=== PATIENT | female | born 1985 | race Caucasian/White ===

== ENCOUNTER 2016-04-11 17:31 | Emergency (ER) ==
[2016-04-11 18:16] LABS: MANUAL DIFF NEEDED? NO
[2016-04-11 18:16] LABS: URINE CULTURE NEEDED? NO; URINE MICRO REVIEW NEEDED? NO; URINE SOURCE CLEAN CATCH
[2016-04-11 18:19] LABS: BASO% 0.3 % (0.0-0.8); EOS# 0.08 X1000 (0.0-0.7); EOS% 1.4 % (0.0-10.0); HEMATOCRIT 37.3 % (37.0-47.0); HEMOGLOBIN 12.8 g/dL (12.0-16.0); LYMPH# 1.86 X1000 (1.2-3.4); LYMPH% 31.8 % (20.5-51.1); MCH 31.2 PG (27-31); MCHC 34.3 g/dL (33-37); MONO% 6.8 % (1.7-9.3); NEUT% 59.7 % (42.2-75.2); PLT 193 X1000 (130-400)
[2016-04-11 18:22] LABS: BILIRUBIN URINE NEGATIVE (NEGATIVE); BLOOD URINE NEGATIVE (NEGATIVE); COLOR YELLOW; GLUCOSE URINE NEGATIVE (NEGATIVE); LEUKOCYTES URINE NEGATIVE (NEGATIVE); NITRITE URINE NEGATIVE (NEGATIVE); PH URINE 5.5; PROTEIN URINE NEGATIVE (NEGATIVE); SP GRAVITY URINE 1.021; TURBIDITY URINE CLEAR (CLEAR); UROBILINOGEN URINE NORMAL (NORMAL)
[2016-04-11 18:24] LABS: UR EPITHELIAL CELLS <10 /HPF (<10); URINE BACTERIA NEGATIVE /HPF; URINE RBC <10 /HPF (<10); URINE WBC <10 /HPF (<10)
[2016-04-11 18:49] LABS: AGAP 13; ALBUMIN 4.4 g/dL (3.5-5.0); ALKALINE PHOSPHATASE 45 U/L (32-104); AMYLASE 59 U/L (20-200); BUN 10 mg/dL (8-22); CALCIUM 9.4 mg/dL (8.8-10.2); CHLORIDE 100 mmol/L (98-107); COSMO 274; GOT 22 U/L (10-30); GPT 25 U/L (10-36); LIPASE 27 U/L (13-60); POTASSIUM 3.3 mmol/L (3.5-5.1); SODIUM 138 mmol/L (136-145); TCO2 25 mmol/L (25-35); TOTAL BILIRUBIN 1.06 mg/dL (0.20-1.00); TOTAL PROTEIN 7.4 g/dL (6.3-8.3)
--- NOTE | 2016-04-11 20:05 | PROVIDER DOCUMENTATION ---
HPI-Abdominal Pain/GI Problem - General Chief Complaint: Abdominal Pain Stated Complaint: FEVER/NAUSEA/HEADACHE Time Seen by Provider: 04/11/16 18:15 Source: patient Allergies/Adverse Reactions: Patient Allergies Allergy/AdvReac Type Severity Reaction Status Date / Time No Known Allergies Allergy Verified 04/11/16 18:23 Home Medications: Home Medication List Medication Instructions Recorded Confirmed Last Taken Type Na Phos,M-B/Na Phos,Di-Ba [Fleet 133 ml ME HS PRN PRN #3 enema 04/11/16 Unknown Rx Enema] - History of Present Illness-ABD Nature of Presenting Problems: 30 yof c/o abd pain for 9 days. Abdominal Pain Onset Location: reports: generalized abdomen. denies: RUQ, LUQ, RLQ, LLQ, epigastric, periumbilical, suprapubic, flank, unknown, other Pain Radiation: reports: no radiation. denies: RUQ, LUQ, RLQ, LLQ, epigastric, periumbilical, flank, groin, scapula, shoulder, chest, back, other Quality of Pain: reports: cramping. denies: none, aching, burning, dull, fullness, indigestion, pressure, sharp, stabbing, tearing, throbbing, tightness , other Severity in ED: reports: moderate Onset/Duration: denies: unsure, abrupt, gradual, just prior to arrival, 1/2 hour ago, 1 hour ago, 1-3 hours ago, 4-6 hours ago, 24 hours ago, 2 days ago, 4 days ago, 5 days ago, 6 days ago, 1 week ago, last week, this morning, this afternoon, this evening, last night, other Timing: reports: still present, getting worse. denies: improving, gone now, resolved prior to arrival, intermittent, constant, changing over time, other Activities at Onset: reports: rest. denies: none, light activity, moderate activity, vigorous activity, recent emotional stress, recent physical stress, recent trauma history, possible bad food, cold exposure, eating, out of country travel, sleep, sexual activity, other Exposure to sick contacts?: No Modifying Factors: improves with: nothing. worse with: analgesics, antacids, breathing, cold/heat therapy, coughing, defecating, eating, exercise, immobilization, lying down, massage, movement, other medication, palpation, rest , urinating, vomiting, other Associated Symptoms: reports: nausea. denies: denies symptoms, anxiety, arm pain, back/neck pain, chest pain, constipation, cough, diaphoresis, diarrhea, dizziness, EENT symptoms, fatigue, fever/chills, genitourinary problems, headaches, heartburn, joint pain, loss of appetite, malaise, muscle aches, sinus congestion/drainage, rash, seizure, shortness of breath, sensory/motor loss, pain with inspiration, swelling/mass in abdomen, syncope, vomiting, weakness, trouble walking, other Last BM: this morning Dark Stools Present?: reports: none noticed. denies: maroon, black, tarry, bright red blood, other Rectal Bleeding: reports: none. denies: bleeding without stool, bright red blood on paper, blood mixed with stool, blood streaks on stool, bloody diarrhea , other Rectal Pain: reports: none. denies: known anal fissure(s), known hemorrhoids, fistula, abscess, r/t intercourse, r/t foreign body, other Emesis Description: reports: none. denies: red blood, coffee grounds, blood- streaked, clear, other Bruising or Bleeding Gums?: No Similar Symptoms Previously?: No Recently seen or treated by another doctor?: No Review of Systems - Adult - REVIEW OF SYSTEMS - ADULT Constitutional: reports: see HPI. denies: no symptoms reported, chills, fever, fatique, night sweats, weight gain, weight loss, other Eyes: reports: no symptoms reported. denies: see HPI, discharge, dry eyes, decreased vision, blurred vision, double vision, eye pain, redness, other Ears, Nose, Mouth & Throat: reports: no symptoms reported. denies: see HPI, ear discharge, ear pain, hearing loss, tinnitus, epistaxis, sinus problem, nose pain, loose teeth, mouth/dental pain, mouth swelling, hoarseness, throat pain, throat swelling, other Cardiovascular: reports: no symptoms reported. denies: see HPI, chest pain, edema, heart murmur, irregular heart rate, orthopnea, palpitations, poor circulation, PND, syncope, other Respiratory: reports: no symptoms reported. denies: see HPI, chronic cough, cough, dyspnea on exertion, excessive sputum production, hemoptysis, pleurisy, shortness of breath, wheezing, other Gastrointestinal: reports: see HPI, abdominal pain, constipation. denies: no symptoms reported, hematemesis, diarrhea, difficulty swallowing, frequent heartburn, nausea, poor appetite, rectal bleeding, vomiting, other Genitourinary: reports: no symptoms reported. denies: see HPI, dysuria, discharge, frequency, flank pain, frequent UTI's, hematuria, hesitency, incontinence, urinary retention, urgency, other Musculoskeletal: reports: no symptoms reported. denies: see HPI, bone pain, back pain, frequent leg cramps, joint pain, joint swelling, muscle aches, muscle weakness, neck pain, other Integumentary: reports: no symptoms reported. denies: see HPI, hives, hair loss , itching, mole changes, nail changes, rash, skin sores/ulcer, skin thickening, other Neurological: reports: no symptoms reported. denies: see HPI, ataxia, dizziness /vertigo, headache/migraines, loss of balance, numbness, paresthesia, seizure, slurred speech, syncope, tremors, other Psychiatric: reports: no symptoms reported. denies: see HPI, anxiety, anti- depressant use, alcohol/drug dependence, depression, emotional problems, insomnia, panic attacks, suicidal thoughts, other Endocrine: reports: no symptoms reported. denies: see HPI, change in skin pigment, excessive sweating, goiter, cold intolerance, heat intolerance, increased hunger, increased thirst, polyuria, other All Other Systems: Reviewed and Negative Past History - Adult - PAST MEDICAL HISTORY-ADULT Review of Records: reports: Old Records Reviewed, Nursing Assessment Review, Medications Reviewed, Social history reviewed & non-contributory. Major Childhood Illnesses: reports: denies history Respiratory: reports: bronchitis (Chronic) - PRIOR SURGERIES/PROCEDURES Surgical/Procedure History: reports: reviewed, not pertinent - PRIOR HOSPITALIZATIONS Prior Hospitalizations: reports: none - IMMUNIZATION STATUS Childhood Immunizations: UTD Flu Vaccine: See Nurse Assessment - FAMILY HISTORY Family History: reviewed, not pertinent Physical Exam-General - PHYSICAL EXAM-ADULT Initial Vital Signs Reviewed: Yes - CONSTITUTIONAL General Appearance: appears well, alert, no apparent distress. negative: mild distress, moderate distress, severe distress, cachetic, obese, thin, anxious, lethargic, slow to respond, obtunded, combative, other - EYES Eyes: PERRL/EOMI, pink conjunctivae. negative: fundi clear, no AV nicking, anisocoria, conjuctival exudate, EOM palsy, meningismus, pale conjunctivae, photophobia, sclera injected, scleral icterus, subconjunctival hemorrhage, sunken eyes, other - HEAD, EARS, NOSE, MOUTH & THROAT HENMT: normocephalic/atraumatic, moist mucous membranes, normal ENT inspection, TMs normal, pharynx normal. negative: angioedema, dental decay, hearing deficit , pharyngeal erythema, tonsillar exudate, TM abnormal, TM obscurred by cerumen, frontal tenderness, maxillary tenderness, other - NECK Neck: non-tender, full range of motion, supple, normal inspection. negative: Brudzinski's sign, carotid bruit, C-spine tenderness, limited range of motion, lymphadenopathy, meningismus, trachial deviation, tender lateral, tender midline , thyromegaly, other - RESPIRATORY Respiratory: chest non-tender, lungs clear, normal breath sounds, no pleuratic chest pain, no respiratory distress, no accessory muscle use. negative: respiratory distress, decreased breath sounds, accessory muscle use, crackles, rales, rhonchi, stridor, wheezing, dull on percussion, prolonged expiration, pain on inspiration, plerual rub, retractions, splinting, decreased rate, increased rate, crepitus, other - CARDIOVASCULAR Cardiovascular: normal peripheral pulses, regular rate, rhythm, no edema, no gallop, no JVD, no murmur. negative: JVD, bradycardia, tachycardia, diastolic murmur, systolic murmur, gallop/S3, gallop/S4, extra beats, friction rub, irregularly irregular, PMI displaced laterally, other - CHEST (BREASTS) Chest/Breast: deferred. negative: normal breast inspection, no masses/lumps, no tenderness, nipple discharge, tenderness, mass/lump noted, other - GASTROINTESTINAL (ABDOMEN) Abdominal Exam: normal bowel sounds, soft, no organomegaly, no pulsatile mass, tenderness (Generalized) - GENITOURINARY Female Genitalia/Pelvic Exam: deferred. negative: external exam normal, speculum exam normal, bimanual exam normal, no cerv. motion tender, no masses, active bleeding, blood, cervicitis, discharge, herpes-like ulcerations, lesions , mass, tender w/ cervical motion, tender adnexa, tender uterus, ulcers, other Rectal Exam: deferred. negative: normal exam, normal rectal tone, black stool, blood streaked stool, decreased tone, hemorrhoids, mass, prostate enlarged/ nodule, tenderness, other Hemoccult Exam: deferred - LYMPHATIC Lymphatic: no adenopathy. negative: axilla node tender, cervical node tenderness, inguinal node tender, enlargement, striations, streaking, other - MUSCULOSKELETAL Back Exam: normal inspection, no CVA tenderness, no vertebral tenderness. negative: CVA tenderness, decreased range of motion, ecchymosis, kyphosis, lordosis, muscle spasm, scoliosis, swelling, vertebral tenderness, other Extremity: normal range of motion, non-tender, normal gait, normal inspection, no pedal edema, no calf tenderness, normal capillary refill. negative: pelvis stable, abnormal NV exam, calf tenderness, deformity, erythema, inflammation, joint effusion, pulse deficit, pedal edema, slow capillary refill, swelling, tenderness, other - SKIN Integumentary: normal color, normal turgor, warm/dry. 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 negative: abnormal cerebellar tests, abnormal fiberglass luggage molder II-XII, abnormal gait, aphasia, EOM palsy, facial droop, focal weakness, motor weakness, sensory deficit, negative romberg's sign, positive romberg's sign, other - PSYCHIATRIC Psych/Mental Status: normal mood/affect, normal thought content, normal thought process, oriented x 3. negative: disoriented x 3, anxious, disheveled, depressed affect, paranoid, tearful, other Progress - PLAN OF CARE/RESULTS Progress/Plan/Lab Results: Laboratory Tests 04/11/16 04/11/16 04/11/16 17:45 17:51 17:51 WBC 5.84 RBC 4.10 L Hgb 12.8 Hct 37.3 MCV 91.0 MCH 31.2 H MCHC 34.3 RDW Std Deviation 12.1 Plt Count 193 MPV 11.0 H Immature Gran % (Auto) 0.0 Neut % (Auto) 59.7 Lymph % (Auto) 31.8 Williamson % (Auto) 6.8 Eos % (Auto) 1.4 Baso % (Auto) 0.3 Immature Gran # (Auto) 0.00 Neut # (Auto) 3.48 Lymph # (Auto) 1.86 Williamson # (Auto) 0.40 Eos # (Auto) 0.08 Baso # (Auto) 0.02 Sodium 138 Potassium 3.3 L Chloride 100 Carbon Dioxide 25 Anion Gap 13 BUN 10 Creatinine 0.6 Estimated GFR/1.73 m2 > 60 BUN/Creatinine Ratio 17 Glucose 85 Calculated Osmolality 274 Calcium 9.4 Total Bilirubin 1.06 H AST 22 ALT 25 Alkaline Phosphatase 45 Total Protein 7.4 Albumin 4.4 Globulin 3.0 Albumin/Globulin Ratio 1.5 Amylase 59 Lipase 27 Urine Source CLEAN CATCH Urine Color YELLOW Urine Turbidity CLEAR Urine pH 5.5 Ur Specific Gate 1.021 Urine Protein NEGATIVE Ur Glucose (Stick) NEGATIVE Ur Ketones (Stick) NEGATIVE Urine Blood NEGATIVE Urine Nitrite NEGATIVE Urine Bilirubin NEGATIVE Urobilinogen Dipstick NORMAL Urine Leukocytes NEGATIVE Urine WBC (Auto) <10 Urine RBC (Auto) <10 U Epithel Cells (Auto) <10 Urine Bacteria (Auto) NEGATIVE Orders Category Date Time Status Saline Loc DIRECTED Care 04/11/16 17:48 Active Urine Preg [ED: Urine Bedside] ORDERED Care 04/11/16 17:44 Active NPO Diet 04/11/16 17:48 Completed KUB ABDOMEN [RAD] Stat Exams 04/11/16 18:44 Taken AMYLASE [CHEM] Stat Lab 04/11/16 17:51 Completed CBC WITH ELECTRONIC DIFF [HEME] Stat Lab 04/11/16 17:51 Completed COMPREHENSIVE METABOLIC PANEL [CHEM] Stat Lab 04/11/16 17:51 Completed LIPASE [CHEM] Stat Lab 04/11/16 17:51 Completed URINALYSIS W/POSS RFLX CULT [URINALYSIS] Stat Lab 04/11/16 17:45 Completed - XRAY 1 XRAY Study: Abdomen Impression: Abnormal (Constipation. read by Dr. Rogers.) Departure - Departure Time of Disposition Order: 20:00 DIAGNOSIS: Constipation Qualifiers: Constipation type: unspecified constipation type Qualified Code(s): K59.00 - Constipation, unspecified Disposition: HOME 01 Certified Medical Emergency: Emergent Condition: Stable Additional Instructions: Drink plenty of fluids. Get miralax over the counter for constipation. ED Follow Up Instructions: You have been treated by a care provider in the Emergency Department. These instructions are being provided to you so you can have an understanding of how to care for yourself upon discharge. Upon discharge from the Emergency Department, you are responsible for making arrangements for follow-up care by a physician of your choice. Take all prescribed medications as directed. Return to the Emergency Department immediately for any new or worsening symptoms. You may call the Physician Referral phone number at [phone] to obtain a list of Physicians who are taking new patients. Prescriptions: Na Phos,M-B/Na Phos,Di-Ba [Fleet Enema] 133 ml ME HS PRN PRN #3 enema PRN Reason: Constipation Referrals: None,PCP [Primary Care Provider] - Forms: Return to School/Parent Work Instructions: Constipation, Adult Attestation - Physician/ ANJELICA Attestation Patient care was provided by Advanced Practice Provider:: Yes Advanced Practice Provider:: Aric Birch Advanced Practice Provider documentation review:: The Mid-level provider documentation, treatment plan and medical decision making was reviewed by the physician who agrees with all treatment and medical decision making by the MLP.
[2016-04-11 20:28] VITALS: BP 105/62
--- NOTE | 2016-04-12 09:32 | Diag Imaging Result Document ---
PROCEDURE NAME: KUB ABDOMEN - 04/11/2016 KUB: FINDINGS: There is stool throughout the colon. The stomach and small bowel are not distended, and there is no evidence of organomegaly or mass. There are a number of phleboliths present in the pelvis. IMPRESSION: Mild constipation. Otherwise, no evidence of acute disease.
== END 2016-04-11 20:27 | disposition home or self-care (01) ==
LOC: ED 17:31
DX: K59.00 Constipation, unspecified (principal); R10.84 Generalized abdominal pain; R50.9 Fever, unspecified; R11.0 Nausea; R51 Headache; R10.817 Generalized abdominal tenderness
CPT/HCPCS: 74000; 80053; 81001; 82150; 83690; 85025